=== PATIENT | female | born 1990 | race African-American/Black ===

== ENCOUNTER 2016-08-22 19:03 | Emergency (ER) | payer BC ==
[~2016-08-22] VITALS: Ht 149.9 cm; Wt 61.2 kg
[~2016-08-22 19:03] MED LIST: ACETAMINOPHEN325 M1 PO; APAP500 PO; COLACE 100 MG100 MG PO; DERMOPLAST SPRA56 ML TOP; FEOSOL325 M1 PO; GILDESS FE 1-21 EACH PO; IBUPROFEN 600600 M1 PO; LANOLIN56 GM TOP; NORCO 5-325 TA1 EACH PO; TUCKS1 EAC1 TOP
[2016-08-22 20:46] VITALS: BP 112/68
== END 2016-08-22 20:46 | disposition home or self-care (01) ==
LOC: ER 19:03
DX: S06.0X0A Concussion without loss of consciousness, initial encounter (principal); S00.83XA Contusion of other part of head, initial encounter; W22.8XXA Striking against or struck by other objects, initial encounter; Y93.89 Activity, other specified; Y92.89 Other specified places as the place of occurrence of the external cause; Y99.9 Unspecified external cause status

== ENCOUNTER 2018-05-19 11:34 | Emergency (ER) | payer BC ==
[~2018-05-19] VITALS: Ht 147.3 cm; Wt 60.3 kg
[2018-05-19 11:34] VITALS: BP 112/75
[2018-05-19] MEDS ORDERED: NAPROSYN500 MG PO (11:54)
[2018-05-19] MEDS ORDERED: ROBAXIN500 MG PO (12:10)
== END 2018-05-19 12:26 | disposition home or self-care (01) ==
LOC: ER 11:34
DX: S39.012A Strain of muscle, fascia and tendon of lower back, initial encounter (principal); S80.12XA Contusion of left lower leg, initial encounter; F41.9 Anxiety disorder, unspecified; Z98.890 Other specified postprocedural states; V89.2XXA Person injured in unspecified motor-vehicle accident, traffic, initial encounter; Y93.89 Activity, other specified; Y92.89 Other specified places as the place of occurrence of the external cause; Y99.8 Other external cause status